=== PATIENT | female | born 1955 | race Hispanic/Latino ===

== ENCOUNTER 2019-04-28 07:10 | Emergency (ER) | payer BC ==
[~2019-04-28] VITALS: Ht 165.1 cm; Wt 75.9 kg
[2019-04-28 08:35] VITALS: BP 117/53
== END 2019-04-28 08:42 | disposition home or self-care (01) ==
LOC: FSED 07:10
DX: R30.0 Dysuria (principal); N30.90 Cystitis, unspecified without hematuria
CPT/HCPCS: 81003; 99282